=== PATIENT | female | born 1965 | race Caucasian/White ===

== ENCOUNTER 2022-03-23 05:48 | Day surgery (SDC) | payer OTHER ==
[~2022-03-23] VITALS: Ht 172.7 cm; Wt 86.4 kg
[~2022-03-23 05:48] MED LIST: CALCIUM 500 MG1 EACH PO; CELEXA40 MG PO; CINNAMON500 MG PO; CLARITIN10 M2 PO; DOXEPIN HCL50 MG PO; LISINOPRIL-HCT1 EACH PO; MULTIVITAMINS1 EAC7 PO
[2022-03-23] MEDS ORDERED: CELECOXIB200 MG PO (07:43)
[2022-03-23] MEDS ORDERED: HYDROCODON-ACE1 EA10 PO (07:43)
--- NOTE | 2022-03-23 07:56 | NUR ---
03/23/22 0756 Abreu,Monet Esquivel 0738: PATIENT ARRIVED TO PACU WITH ORAL AIRWAY IN PLACE. 0740: ORAL AIRWAY REMOVED. O2 MASK ON. 0750: PATIENT RATES PAIN IN LEFT KNEE AT 5/10. DECLINES PAIN MEDICATION AT THIS TIME.
--- NOTE | 2022-03-23 08:16 | NUR ---
PT BACK TO DS ROOM. REPORTS PAIN 8/10 JELLO AND CRACKERS GIVEN WITH WATER PT TOLERATES WELL SHAHID NAUSE. AT BEDSIDE. WARM BLACKETS GIVEN TO PT, ANTONIO LIGHT WITH REACH.
--- NOTE | 2022-03-23 08:23 | NUR ---
DROPPED HYDROCONE PILL, WAISTED ONE IN PIXES. PULLED NEW PILL GAVE TO PT.
--- NOTE | 2022-03-23 08:26 | NUR ---
WARM BLANKET AND WILLA HUGGER GIVEN TO PT, ICE PLACED ON LT KNEE, CALL LIGHT WITHIN REACH.
--- NOTE | 2022-03-23 09:21 | NUR ---
09 PT AMBULATED PT BATHROOM WITHOUT ASSIST. SHE WAS ABLE TO VOID. CALLED [facility] TO ENSURE THEY RECIEVED RX, THEY COMFIRMED RX IS THERE. PT REPORTS PAIN IS 2/10, REPORTS FEELING A "LITTLE DISCOMFORT" BUT NO PAIN. DISCHARGE INSTRUCTIONS GIVEN TO PT AND BOTH VOICED UNDERSTANDING.
--- NOTE | 2022-03-26 06:16 | OR ---
[facility] [address], [place] [address] Signed DATE OF OPERATION: 03/23/2022 SURGEON: Bertin Brandt MD PREOPERATIVE DIAGNOSIS: Medial meniscus tear, left knee. POSTOPERATIVE DIAGNOSIS: Medial meniscus tear, left knee. PROCEDURE PERFORMED: Left knee arthroscopy with partial medial meniscectomy. PUBLIC WORKS COMMISSIONER: None. ANESTHESIA: General. BLOOD LOSS: None. BRIEF HISTORY: Madelaine is a 56-year-old female with progressive worsening of pain and occasional locking in her left knee, it was also giving out. Risks, benefits, and alternatives of the surgery were discussed with her and she elected to proceed. Once consent was obtained, she was taken to the operating room after adequate anesthesia. She was placed on the operating room table. The right leg was flexed, abducted, and externally rotated with a well-padded leg saeed. The left leg was placed in well-padded leg saeed proximally and prepped and draped in a standard sterile fashion. The portal sites were injected with 0.25% Marcaine with epinephrine. The standard inferolateral and superolateral portals were made. The scope was introduced into the knee. 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 Grade 2-3 changes on the trochlear side. Medial and lateral gutters were clear, although it had marginal osteophytes. ACL and PCL were intact. Lateral compartment was intact. Medial compartment showed grade 2 to a small area of grade 4 chondromalacia of the medial femoral condyle. Grade 2 changes on tibial side. Complex tear of the medial meniscus starting in the mid body extending posteriorly was noted. Electronically Signed By: BERTIN BRANDT MD 03/26/22 0616 PATIENT NAME: MADELAINE AMEZCUA OPERATIVE REPORT DATE OF : 69 REPORT #: [id number] PHYSICIAN: BERTIN BRANDT MD PCP: MUSTAPHA ROSEN MD REPORT IS CONFIDENTIAL AND NOT TO BE RELEASED WITHOUT AUTHORIZATION [facility] [address], [place] [address] Signed DESCRIPTION OF PROCEDURE: Standard inferomedial portal was made after localization using a spinal needle. The straight biter was used to trim the meniscus tear back to a stable rim, this was then smoothed and feathered out using the shaver and all debris was evacuated. The scope was then withdrawn. Portals were closed with 3-0 nylon and the knee was injected with 60 mg Toradol. The wounds were dressed with Adaptic ABD and Donald wrap. She tolerated the procedure well. All sponge, needle, and instrument counts were correct. Bertin Brandt MD BA/MADELIN /[id number] Copies: ~ Electronically Signed By: BERTIN BRANDT MD 03/26/22 0616 PATIENT NAME: MADELAINE AMEZCUA OPERATIVE REPORT DATE OF : 69 REPORT #: [id number] PHYSICIAN: BERTIN BRANDT MD PCP: MUSTAPHA ROSEN MD REPORT IS CONFIDENTIAL AND NOT TO BE RELEASED WITHOUT AUTHORIZATION
== END 2022-03-23 09:15 | disposition home or self-care (01) ==
LOC: DS 05:48
PROVIDERS: ATTEND Specialist
PROC: 0SBD4ZZ Excision of Left Knee Joint, Percutaneous Endoscopic Approach (ICD-10-PCS; principal; 2022-03-23 07:30)
DX: S83.242A Other tear of medial meniscus, current injury, left knee, initial encounter (principal); F32.A Depression, unspecified; F41.9 Anxiety disorder, unspecified
CPT/HCPCS: J0131; J0690; J1100; J1885; J2001; J2250; J2405; J2704; J7121